=== PATIENT | male | born 1985 | race Caucasian/White ===

== ENCOUNTER 2017-11-15 19:54 | Emergency (ER) | payer MEDICAID ==
[~2017-11-15] VITALS: Ht 162.6 cm; Wt 70.3 kg
[2017-11-15 20:04] VITALS: BP 177/100
--- NOTE | 2017-11-15 20:09 | NUR ---
TO LOBBY A/W BED, AMBULATORY, ERMSebastian NOTED
--- NOTE | 2017-11-15 20:35 | NUR ---
ASSUMED CARE OF PT AT THIS TIME. PT AMBULATORY TO BED 2 W/ STEADY GAIT. C/O LEFT CHEST PAIN X 1 DAY. PT STATES, "I PARTIED WAY TOO HARD THIS WEEKEND." AAOX4 WITH EVEN AND STEADY GAIT; LUNGS CLEAR BL; HR EVEN AND REGULAR; PATIENT STATES PAIN OF 3/10; VSS; PATIENT POSITIONED FOR COMFORT; HOB ELEVATED; BEDRAILS UP X2; BED DOWN. ER MD MADE AWARE OF PT STATUS. WILL CONTINUE TO MONITOR.
[2017-11-15] MEDS ORDERED: LORazepam 2 MG/ML VIAL IM ONE (21:00)
--- NOTE | 2017-11-15 21:38 | NUR ---
Dr. Joyce evaluating patient at bedside.
[2017-11-15] MEDS ORDERED: NACL 0.9% 1,000 ML IV ONE (21:55)
[2017-11-15] MEDS ORDERED: ONDANSETRON 4 MG/2 ML VIAL IVP ONE (21:55)
[2017-11-15 23:40] VITALS: BP 139/94
--- NOTE | 2017-11-15 23:40 | NUR ---
Patient discharged with v/s stable. Written and verbal after care instructions given and explained. Patient alert, oriented and verbalized understanding of instructions. Ambulatory with steady gait. All questions addressed prior to discharge. ID band removed. Patient advised to follow up with PMD. Rx of OMEPRAZOLE, ZOFRAN, AND MOTRIN given. Patient educated on indication of medication including possible reaction and side effects. Opportunity to ask questions provided and answered.
== END 2017-11-15 23:40 | disposition home or self-care (01) ==
LOC: MED 19:54
DX: F10.10 Alcohol abuse, uncomplicated (principal)
CPT/HCPCS: 71045; 93005; 96361; 96372; 96374; 99284; J2060; J2405; J7030; Q0092

== ENCOUNTER 2018-08-04 12:53 | Emergency (ER) | payer MEDICAID ==
[~2018-08-04] VITALS: Ht 175.3 cm; Wt 74.8 kg
[2018-08-04 12:57] VITALS: BP 90/68
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
[2018-08-04 13:15] VITALS: BP 99/65
--- NOTE | 2018-08-04 13:15 | NUR ---
Patient discharged with v/s stable. Written and verbal after care instructions given and explained. Patient alert, oriented and verbalized understanding of instructions. Ambulatory with in custody. All questions addressed prior to discharge. ID band removed. Patient advised to follow up with PMD.no Rx given. Patient educated on indication of medication including possible reaction and side effects. Opportunity to ask questions provided and answered.
== END 2018-08-04 13:15 | disposition home or self-care (01) ==
LOC: MED 12:53
DX: S00.83XA Contusion of other part of head, initial encounter (principal); Y35.811A Legal intervention involving manhandling, law enforcement official injured, initial encounter; Y93.89 Activity, other specified; Y92.89 Other specified places as the place of occurrence of the external cause; Y99.8 Other external cause status
CPT/HCPCS: 99283

== ENCOUNTER 2018-11-21 12:20 | Emergency (ER) | payer MEDICAID ==
[~2018-11-21] VITALS: Ht 162.6 cm; Wt 70.1 kg
[2018-11-21 12:37] VITALS: BP 156/109
--- NOTE | 2018-11-21 12:57 | NUR ---
PT AMBULATED TO LOBBY AT THIS TIME, VSS, EKG READS NSR.
--- NOTE | 2018-11-21 13:28 | NUR ---
PT C/O TIGHTNESS IN CHEST THAT HAS BEEN OCCURRING FOR ABOUT A MONTH. THE PAIN COMES AND GOES. MAINLY ON LEFT SIDE OF CHEST. NAUSEA AND FEELS DEHYDRATED. HAS NOT EATEN TODAY AND ONLY HAD SIPS OF WATER. TOOK TWO ADVIL AT 1000 TODAY. MEDHS: DENIES RX: DENIES
--- NOTE | 2018-11-21 13:32 | NUR ---
XRAY AT BEDSIDE
--- NOTE | 2018-11-21 13:32 | NUR ---
cnc technician at bedside.
[2018-11-21] MEDS ORDERED: NACL 0.9% 1,000 ML IV ONE (14:05)
[2018-11-21 14:43] LABS: BASOPHILS % (AUTO) 0.4 % (0.0-2.0); EOSINOPHILS % (AUTO) 0.4 % (0.0-4.0); HEMATOCRIT 47.5 % (36-52); HEMOGLOBIN 16.5 g/dL (12.0-18.0); LYMPHOCYTES # (AUTO) 1.8 K/uL (2.0-11.5); LYMPHOCYTES % (AUTO) 21.1 % (20.5-51.1); MEAN CORPUSCULAR HEMOGLOBIN 32 pg (27-31); MEAN CORPUSCULAR HGB CONC 35 g/dL (33-37); MEAN CORPUSCULAR VOLUME 91.8 fL (80-94); MONOCYTES # (AUTO) 0.5 K/uL (0.8-1.0); MONOCYTES % (AUTO) 5.5 % (1.7-9.3); NEUTROPHILS # (AUTO) 6.2 K/uL (1.8-7.7); NEUTROPHILS % (AUTO) 72.6 % (42.2-75.2); PLATELET COUNT (AUTO) 219 K/uL (140-450); RED BLOOD CELL COUNT(AUTO) 5.17 MIL/uL (4.20-6.10); RED CELL DISTRIBUTION WIDTH 13.5 % (11.6-13.7); WHITE BLOOD COUNT (AUTO) 8.6 K/uL (4.8-10.8)
[2018-11-21 14:51] LABS: BARBITURATE, URINE NEG. ng/ml (NEG <=200); BENZODIAZEPINE, URINE NEG. ng/mL (NEG <=200); CANNABINOID, URINE NEG. ng/mL (NEG <=50); COCAINE, URINE POS. ng/mL (NEG <=300); OPIATE, URINE NEG. ng/mL (NEG <=2000); PHENCYCLIDINE SCREEN,URINE NEG. ng/mL (NEG <=25)
[2018-11-21] MEDS ORDERED: DIAZEPAM 5 MG TAB PO ONE (15:00)
[2018-11-21] MEDS ORDERED: KETOROLAC 30 MG/ML VIAL IM ONE (15:00)
[2018-11-21 15:07] LABS: ANION GAP 16.7 (8-16); CARBON DIOXIDE 22.9 mmol/L (21-32); CREATININE 0.9 mg/dL (0.7-1.3); POTASSIUM 3.6 mmol/L (3.5-5.1)
[2018-11-21 15:13] LABS: ALBUMIN 4.2 g/dL (3.4-5.0); TOTAL BILIRUBIN 0.6 mg/dL (0.0-1.0)
[2018-11-21] MEDS ORDERED: KETOROLAC 30 MG/ML VIAL IVP ONE (15:20)
--- NOTE | 2018-11-21 15:53 | NUR ---
PT STATES THAT THE PAIN IS RELIEVED AT THIS MOMENT AND IS FEELING BETTER. WAITING FOR DISCHARGE.
--- NOTE | 2018-11-21 16:01 | NUR ---
Patient discharged with v/s stable. Written and verbal after care instructions given and explained. Patient verbalized understanding. Ambulatory with steady gait. All questions addressed prior to discharge. Advised to follow up with PMD.
[2018-11-21 16:03] VITALS: BP 146/98
== END 2018-11-21 16:01 | disposition home or self-care (01) ==
LOC: MED 12:20
DX: R07.89 Other chest pain (principal); F14.10 Cocaine abuse, uncomplicated; R11.0 Nausea; E86.0 Dehydration
CPT/HCPCS: 36415; 71045; 80053; 80305; 84484; 85025; 93005; 96361; 96374; 99284; J1885; J7030; Q0092